=== PATIENT | male | born 1960 | race Caucasian/White ===

== ENCOUNTER 2016-10-09 23:44 | Emergency (ER) | payer MEDICAID ==
[~2016-10-09] VITALS: Ht 180.3 cm; Wt 108.9 kg
[~2016-10-09 23:44] MED LIST: AZIT500T2 PO; CHLORDIAZEPOXIDE PO; DIPH25TA23 PO; IBUP-1955 PO; MECL-102 PO; TRAZ-144 PO
--- NOTE | 2016-10-10 00:23 | NUR ---
IV PLOACED,LAB MARYCHUY BLOOD, EKG DONE, MONIOTOR SHOWS SINUS TACH, PO2=97% ON ROOM AIR
--- NOTE | 2016-10-10 00:35 | NUR ---
PT TO CT SCAN
[2016-10-10 00:37] LABS: HEMATOCRIT 39.7 % (40.0-50.0); HEMOGLOBIN 13.3 g/dL (14.0-18.0); MEAN CORPUSCULAR HEMOGLOBIN 30.1 uug (27.0-31.0); MEAN CORPUSCULAR HGB CONC 34 g/dL (32.0-37.0); MEAN CORPUSCULAR VOLUME 89.7 fL (82.0-92.0); PLATELET COUNT (AUTO) 236 K/uL (150-450); RED BLOOD CELL COUNT(AUTO) 4.43 MIL/uL (4.70-6.10); RED CELL DISTRIBUTION WIDTH 16.3 % (11.5-14.5); WHITE BLOOD COUNT (AUTO) 4.1 K/uL (4.0-11.2)
[2016-10-10 00:44] LABS: CALCIUM 8.6 mg/dL (8.5-10.1); CREATININE 1.1 mg/dL (0.6-1.3); POTASSIUM 4.2 mmol/L (3.5-5.1)
[2016-10-10 00:52] LABS: TROPONIN I < 0.017 ng/mL (0.00-0.056)
[2016-10-10 00:56] LABS: LYMPHOCYTES % (MANUAL) 40 % (20-40); MONOCYTES % (MANUAL) 10 % (2-10); NEUTROPHILS % (MANUAL) 50 % (42-75)
[2016-10-10 00:57] LABS: ANISOCYTOSIS 1+; PLATELET ESTIMATE ADEQUATE
[2016-10-10 00:59] LABS: ALBUMIN 3.2 g/dL (3.4-5.0); BILIRUBIN,DIRECT 0.1 mg/dL (0.0-0.2); BILIRUBIN,TOTAL 0.5 mg/dL (0.2-1.0); TOTAL PROTEIN, SERUM 6.7 g/dL (6.4-8.2)
[2016-10-10 01:01] LABS: LACTIC ACID 3.8 mmol/L (0.4-2.0)
[2016-10-10] MEDS ORDERED: PROCHLORPERAZINE EDISYLATE 10 MG/2 ML VIAL IV ONE (01:15)
[2016-10-10] MEDS ORDERED: KETOROLAC TROMETHAMINE 15 MG INJ IVP ONE (01:15)
[2016-10-10] MEDS ORDERED: KETOROLAC TROMETHAMINE 15 MG INJ ONE (01:25)
[2016-10-10] MEDS ORDERED: PROCHLORPERAZINE EDISYLATE 10 MG/2 ML VIAL ONE (01:25)
--- NOTE | 2016-10-10 01:43 | NUR ---
MSE COMPLETED, IV D/C'D INTACT, PT GIVEN ACI. PT AMBULATED W/O DIFF/TOOK ALL BELONGINGS. PT'S SON PRESENT AND TO SDRIVE.
[2016-10-10 02:08] VITALS: BP 129/78
== END 2016-10-10 01:45 | disposition home or self-care (01) ==
LOC: ER 23:57
DX: R07.89 Other chest pain (principal); F17.200 Nicotine dependence, unspecified, uncomplicated; F19.10 Other psychoactive substance abuse, uncomplicated
CPT/HCPCS: 36415; 70450; 71010; 80048; 80076; 83605; 83690; 84484; 85025; 85379; 85730; 87040 ×2; 93005; 96374; 96375; 99285; A4663 ×2; G0482; J0780; J1885; 70030-TC; G6040-TC

== ENCOUNTER 2017-05-20 16:42 | Emergency (ER) | payer MEDICAID ==
[~2017-05-20] VITALS: Ht 180.3 cm; Wt 95.3 kg
[2017-05-20] MEDS ORDERED: ACETAMINOPHEN ES 500 MG TABLET PO ONE (17:10)
[2017-05-20] MEDS ORDERED: ACETAMINOPHEN ES 500 MG TABLET ONE ×2 (17:24→17:26)
[2017-05-20] MEDS ORDERED: DEXAMETHASONE SOD PHOSPHATE 4 MG INJ IV ONE (18:06)
[2017-05-20] MEDS ORDERED: IV NS 1000 ML 1,000 ML IV ONE (18:15)
[2017-05-20] MEDS ORDERED: CEFTRIAXONE 1 G in IV DEXTROSE 5% 50 ML IV ONE (18:15)
[2017-05-20] MEDS ORDERED: DEXAMETHASONE SOD PHOSPHATE 10 MG INJ ONE (18:37)
[2017-05-20] MEDS ORDERED: CEFTRIAXONE 1 G VIAL ONE (18:37)
--- NOTE | 2017-05-20 18:40 | NUR ---
IV PLACED, 2L 0.9NS BOLUS INFUSING,ROCEFIN INFUSING . RAPID STREP SENT. PT POSITIONED FOR COMFORT, TYLENOL ADMIN EARLIER.
[2017-05-20] MEDS ORDERED: MISCELLANEOUS MED XX ONE (19:00)
--- NOTE | 2017-05-20 19:22 | NUR ---
Note fidel in EDM - 05/20/17 at 1926 by MATT Received report from VEDA Falk. Assumed care of pt at this time. First liter bolus completed, second liter bolus started and infusing freely to gravity. Pt c/o pain. Dr. Schrader notified, awaiting further orders.
--- NOTE | 2017-05-20 19:22 | NUR ---
BEDSIDE SBAR REPORT TO MILLY RN, IV FLUIDS ENDORSED TO TC RN TO COMPLETE.
--- NOTE | 2017-05-20 19:26 | NUR ---
Received report from VEDA Falk. Assumed care of pt at this time. First liter bolus completed. Pt c/o pain. Dr. Schrader notified, awaiting further orders.
[2017-05-20] MEDS ORDERED: MORPHINE SULFATE 4 MG/1 ML DISP.SYRIN IV ONE (19:30)
[2017-05-20] MEDS ORDERED: ONDANSETRON IV *ER 4 MG/2 ML VIAL IV ONE (19:30)
--- NOTE | 2017-05-20 19:39 | NUR ---
Pt medicated for pain, will monitor for effects of medication. Pt given ABT injection, will monitor for any adverse reactions. Pt resting in position of comfort for self.
[2017-05-20] MEDS ORDERED: PENICILLIN G BENZATHINE 2.4 MMU/4 ML DISP.SYRIN IM ONE (19:44)
[2017-05-20] MEDS ORDERED: MORPHINE SULFATE 4 MG/1 ML DISP.SYRIN ONE (19:44)
[2017-05-20] MEDS ORDERED: ONDANSETRON 4 MG/2 ML VIAL ONE (19:44)
--- NOTE | 2017-05-20 20:03 | NUR ---
No adverse reaction noted. Pt sts pain improved. Pt stable for discharge per MD. IV dc'd, catheter intact. Drsg applied. No problems noted to site. Pt given ACI. Pt verbalized understanding of dc instructions. Pt ambulated out of ER with steady gait and ride home.
[2017-05-20 20:05] VITALS: BP 119/89
== END 2017-05-20 20:06 | disposition home or self-care (01) ==
LOC: ER 16:43
DX: J02.9 Acute pharyngitis, unspecified (principal); F17.200 Nicotine dependence, unspecified, uncomplicated
CPT/HCPCS: 36415; 86403; 87070; 96365; 96375; 99284; A4663; J0696; J1100; J2270; J2405; J7030; J7060

== ENCOUNTER 2017-07-13 21:36 | Emergency (ER) | payer MEDICAID ==
[~2017-07-13] VITALS: Ht 177.8 cm; Wt 98.4 kg
[~2017-07-13 21:36] MED LIST changes: -AZIT500T2 PO; -CHLORDIAZEPOXIDE PO
[2017-07-13] MEDS ORDERED: HYDROCODONE-ACETAMIN 10-325 MG (22:08)
[2017-07-13] MEDS ORDERED: BAYER ASPIRIN 81 MG (22:08)
[2017-07-13] MEDS: HYDROCODONE/APAP 10-325 MG TABLET PO ONE (23:24)
--- NOTE | 2017-07-13 23:27 | NUR ---
Patient discharged to home in stable conditon. Written and verbal after care instructions given. Patient verbalizes understanding of instructions.
[2017-07-13] MEDS ORDERED: HYDROCODONE/APAP 10-325 MG TABLET ONE (23:41)
== END 2017-07-13 23:28 | disposition home or self-care (01) ==
LOC: ER 21:36
DX: M25.561 Pain in right knee (principal); Z96.651 Presence of right artificial knee joint; Z98.890 Other specified postprocedural states; F17.200 Nicotine dependence, unspecified, uncomplicated
CPT/HCPCS: 99283; A4663

== ENCOUNTER 2018-12-24 02:42 | Emergency (ER) | payer MEDICAID, OTHER ==
[~2018-12-24] VITALS: Ht 180.3 cm; Wt 102.1 kg
[~2018-12-24 02:42] MED LIST changes: +BAYER ASPIRIN 81 MG; -DIPH25TA23 PO; +HYDROCODONE-ACETAMIN 10-325 MG; -MECL-102 PO; -TRAZ-144 PO
--- NOTE | 2018-12-24 02:45 | NUR ---
PT IS ALERT AWAKE AND ORIENTED TIMES THREE OVERALL APPEARANCES FAIR PT STATED HE CAME IN BECAUSE HIS KIDNEY HURTS DENIES PMH OF KIDNEY PROBLEMS NO LOWER BACK PAIN DENIES S/S UTI PAIN LEVEL 10 MD AWARE
[2018-12-24 03:15] LABS: BASOPHILS % (AUTO) 0.6 % (0.0-2.0); EOSINOPHILS # (AUTO) 0.1 K/uL (0.0-0.7); EOSINOPHILS % (AUTO) 1.1 % (0.0-7.0); HEMATOCRIT 33.8 % (36.7-47.1); HEMOGLOBIN 11.1 g/dL (12.5-16.3); LYMPHOCYTES # (AUTO) 2.5 K/uL (20.0-40.0); LYMPHOCYTES % (AUTO) 37.9 % (20.5-51.5); MEAN CORPUSCULAR HEMOGLOBIN 26.9 uug (23.8-33.4); MEAN CORPUSCULAR HGB CONC 33 g/dL (32.5-36.3); MEAN CORPUSCULAR VOLUME 81.9 fL (73.0-96.2); MONOCYTES # (AUTO) 0.8 K/uL (2.0-10.0); MONOCYTES % (AUTO) 11.6 % (0.0-11.0); NEUTROPHILS # (AUTO) 3.2 K/uL (1.8-8.9); NEUTROPHILS % (AUTO) 48.8 % (38.5-71.5); PLATELET COUNT (AUTO) 259 K/uL (152-348); RED BLOOD CELL COUNT(AUTO) 4.13 MIL/uL (4.06-5.63); WHITE BLOOD COUNT (AUTO) 6.6 K/uL (3.6-10.2)
[2018-12-24 03:17] LABS: CREATININE 0.8 mg/dL (0.6-1.3)
[2018-12-24] MEDS ORDERED: LIDOCAINE VISCUS 2% 15 ML UDC MM ONE (03:30)
[2018-12-24] MEDS ORDERED: MAG HYDROX/AL HYDROX/SIMETH 30 ML LIQUID UDC PO ONE (03:30)
[2018-12-24] MEDS ORDERED: PANTOPRAZOLE SODIUM 40 MG TABLET.DR PO ONE ×2 (03:30→03:39)
[2018-12-24 03:32] LABS: BILIRUBIN,DIRECT 0.1 mg/dL (0.0-0.2); BILIRUBIN,TOTAL 0.3 mg/dL (0.2-1.0); TOTAL PROTEIN, SERUM 6.3 g/dL (6.4-8.2)
[2018-12-24] MEDS ORDERED: MAG HYDROX/AL HYDROX/SIMETH 30 ML LIQUID UDC ONE (03:39)
[2018-12-24] MEDS ORDERED: LIDOCAINE VISCUS 2% 15 ML UDC ONE (03:40)
--- NOTE | 2018-12-24 04:00 | NUR ---
WAS MED TIME ONE WITH PROTONIX, MAALOX AND LIDO VISCUS DENIES ALLERGIES MEDICATIONS TEACHING GIVEN WITH SOME EFFECT
--- NOTE | 2018-12-24 05:00 | NUR ---
PT WAS A SLEEP COMFORT AND SAFETY MAINTAINED
[2018-12-24] MEDS ORDERED: MORPHINE SULFATE 4 MG/1 ML DISP.SYRIN ONE (05:29)
[2018-12-24] MEDS ORDERED: MORPHINE SULFATE 4 MG/1 ML DISP.SYRIN IM ONE (05:30)
--- NOTE | 2018-12-24 05:45 | NUR ---
WAS GIVEN MORPHINE 4MG FOR KIDNEY PAIN DENIES ALLERGY MED TEACHING GIVEN WITH EFFECT
[2018-12-24 06:06] LABS: *BILIRUBIN,URIN NEGATIVE (NEGATIVE); *BLOOD, URINE NEGATIVE (NEGATIVE); *CLARITY,URINE CLEAR (CLEAR); *COLOR,URINE YELLOW (YELLOW); *KETONES,URINE NEGATIVE (NEGATIVE); *UROBILINOGEN,URINE 0.2 E.U./dl (NORMAL); LEUKOCYTE ESTERASE ,URINE NEGATIVE (NEGATIVE); NITRITE, URINE NEGATIVE (NEGATIVE); PH,URINE 5.5 (5.0-8.0); UGLUCOSE NEGATIVE (NEGATIVE)
--- NOTE | 2018-12-24 06:41 | NUR ---
PT REST QUIETLY AWAITING FOR RE EVAL COMFORT AND SAFETY MAINTAINED
--- NOTE | 2018-12-24 07:01 | NUR ---
Patient discharged to home in stable conditon. Written and verbal after care instructions given. Patient verbalizes understanding of instructions. Patient ambulated with stable gait.
[2018-12-24 07:02] VITALS: BP 120/61
== END 2018-12-24 07:03 | disposition home or self-care (01) ==
LOC: ER 02:44
DX: R07.9 Chest pain, unspecified (principal); R10.84 Generalized abdominal pain; R11.0 Nausea; F17.210 Nicotine dependence, cigarettes, uncomplicated; Z79.899 Other long term (current) drug therapy; Z79.1 Long term (current) use of non-steroidal anti-inflammatories (NSAID)
CPT/HCPCS: 36415; 71045; 74176; 80048; 80076; 81001; 83690; 84484 ×2; 85025; 93005; 96372; 99284; 99406; J2270; 70030-TC; A4663

== ENCOUNTER 2019-01-23 15:03 | Emergency (ER) | payer OTHER ==
[~2019-01-23] VITALS: Ht 180.3 cm; Wt 102.1 kg
[2019-01-23] MEDS ORDERED: LIDOCAINE VISCUS 2% 15 ML UDC MM ONE (15:45)
[2019-01-23] MEDS ORDERED: MAG HYDROX/AL HYDROX/SIMETH 30 ML LIQUID UDC PO ONE (15:45)
[2019-01-23] MEDS ORDERED: HYDROCODONE/APAP 5-325MG TABLET PO ONE (15:45)
[2019-01-23] MEDS ORDERED: IV NORMAL SALINE 1000 ML BAG IV ONE (15:45)
[2019-01-23 15:48] LABS: BASOPHILS % (AUTO) 0.5 % (0.0-2.0); EOSINOPHILS % (AUTO) 0.2 % (0.0-7.0); HEMATOCRIT 37.3 % (36.7-47.1); LYMPHOCYTES # (AUTO) 1.3 K/uL (20.0-40.0); MEAN CORPUSCULAR HEMOGLOBIN 26.8 uug (23.8-33.4); MEAN CORPUSCULAR HGB CONC 32 g/dL (32.5-36.3); MEAN CORPUSCULAR VOLUME 83.3 fL (73.0-96.2); MONOCYTES # (AUTO) 0.9 K/uL (2.0-10.0); MONOCYTES % (AUTO) 12.4 % (0.0-11.0); NEUTROPHILS # (AUTO) 4.7 K/uL (1.8-8.9); NEUTROPHILS % (AUTO) 67.9 % (38.5-71.5); PLATELET COUNT (AUTO) 340 K/uL (152-348); RED BLOOD CELL COUNT(AUTO) 4.48 MIL/uL (4.06-5.63); WHITE BLOOD COUNT (AUTO) 6.9 K/uL (3.6-10.2)
[2019-01-23] MEDS ORDERED: HYDROCODONE/APAP 5-325MG TABLET ONE (15:50)
[2019-01-23] MEDS ORDERED: MAG HYDROX/AL HYDROX/SIMETH 30 ML LIQUID UDC ONE (15:50)
[2019-01-23] MEDS ORDERED: LIDOCAINE VISCUS 2% 15 ML UDC ONE (15:50)
[2019-01-23 16:07] LABS: BILIRUBIN,DIRECT 0.1 mg/dL (0.0-0.2); BILIRUBIN,TOTAL 0.4 mg/dL (0.2-1.0); TOTAL PROTEIN, SERUM 6.9 g/dL (6.4-8.2)
--- NOTE | 2019-01-23 17:00 | NUR ---
Patient discharged to home in stable conditon. Written and verbal after care instructions given. Patient verbalizes understanding of instructions.PT WALKS IN STEADY GAIT. PT SAYS FEELS BETTER, PT NOT DRIVING.
[2019-01-23 17:13] VITALS: BP 101/69
== END 2019-01-23 17:00 | disposition home or self-care (01) ==
LOC: ER 15:03
DX: K29.20 Alcoholic gastritis without bleeding (principal); F10.10 Alcohol abuse, uncomplicated; L03.012 Cellulitis of left finger; F17.210 Nicotine dependence, cigarettes, uncomplicated; Z79.1 Long term (current) use of non-steroidal anti-inflammatories (NSAID); Z79.899 Other long term (current) drug therapy; Y90.9 Presence of alcohol in blood, level not specified
CPT/HCPCS: 36415; 70030-TC; 71045; 83690; 85025; 85730; 93005; A4663; J7030

== ENCOUNTER 2019-02-05 15:40 | Emergency (ER) | payer OTHER ==
[~2019-02-05] VITALS: Ht 175.3 cm; Wt 99.8 kg
[2019-02-05 15:59] LABS: BASOPHILS % (AUTO) 0.4 % (0.0-2.0); EOSINOPHILS % (AUTO) 0.2 % (0.0-7.0); HEMATOCRIT 39.4 % (36.7-47.1); HEMOGLOBIN 12.6 g/dL (12.5-16.3); LYMPHOCYTES # (AUTO) 0.6 K/uL (20.0-40.0); LYMPHOCYTES % (AUTO) 13.2 % (20.5-51.5); MEAN CORPUSCULAR HEMOGLOBIN 26.9 uug (23.8-33.4); MEAN CORPUSCULAR HGB CONC 32 g/dL (32.5-36.3); MEAN CORPUSCULAR VOLUME 84.4 fL (73.0-96.2); MONOCYTES # (AUTO) 0.4 K/uL (2.0-10.0); MONOCYTES % (AUTO) 9.5 % (0.0-11.0); NEUTROPHILS # (AUTO) 3.6 K/uL (1.8-8.9); NEUTROPHILS % (AUTO) 76.7 % (38.5-71.5); PLATELET COUNT (AUTO) 296 K/uL (152-348); RED BLOOD CELL COUNT(AUTO) 4.66 MIL/uL (4.06-5.63); WHITE BLOOD COUNT (AUTO) 4.7 K/uL (3.6-10.2)
[2019-02-05 16:07] LABS: CREATININE 1.4 mg/dL (0.6-1.3); POTASSIUM 3.9 mmol/L (3.5-5.1)
[2019-02-05 16:13] LABS: BILIRUBIN,DIRECT 0.1 mg/dL (0.0-0.2); BILIRUBIN,TOTAL 0.3 mg/dL (0.2-1.0); TOTAL PROTEIN, SERUM 7.3 g/dL (6.4-8.2)
--- NOTE | 2019-02-05 16:17 | NUR ---
PT IS IN ROOM #1B. DR RICHARDS EVALUATED THE PT.
[2019-02-05] MEDS ORDERED: IBUPROFEN 600 MG TABLET PO ONE (16:45)
[2019-02-05] MEDS ORDERED: IBUPROFEN 600 MG TABLET ONE (16:47)
--- NOTE | 2019-02-05 16:55 | NUR ---
PT WAS D/C'd TO HOME AFTER DR RICHARDS RE-EVALUATION. D/C INSTRUCTIONS GIVEN TO THE PT.
[2019-02-05 16:57] VITALS: BP 121/79
== END 2019-02-05 16:58 | disposition home or self-care (01) ==
LOC: ER 15:41
DX: R07.2 Precordial pain (principal); F17.210 Nicotine dependence, cigarettes, uncomplicated; Z79.1 Long term (current) use of non-steroidal anti-inflammatories (NSAID); Z79.899 Other long term (current) drug therapy; Z79.82 Long term (current) use of aspirin
CPT/HCPCS: 36415; 70030-TC; 71045; 85025; 93005; A4663

== ENCOUNTER 2019-02-07 17:46 | Emergency (ER) | payer OTHER ==
[~2019-02-07] VITALS: Ht 180.3 cm; Wt 99.8 kg
[2019-02-07] MEDS ORDERED: IV NORMAL SALINE 1000 ML BAG IV ONE ×2 (18:30→19:15)
[2019-02-07 18:46] LABS: BASOPHILS % (AUTO) 0.3 % (0.0-2.0); EOSINOPHILS % (AUTO) 0.1 % (0.0-7.0); HEMATOCRIT 39.3 % (36.7-47.1); HEMOGLOBIN 12.8 g/dL (12.5-16.3); LYMPHOCYTES # (AUTO) 1.3 K/uL (20.0-40.0); LYMPHOCYTES % (AUTO) 18.2 % (20.5-51.5); MEAN CORPUSCULAR HEMOGLOBIN 26.9 uug (23.8-33.4); MEAN CORPUSCULAR HGB CONC 33 g/dL (32.5-36.3); MEAN CORPUSCULAR VOLUME 82.8 fL (73.0-96.2); MONOCYTES % (AUTO) 13.7 % (0.0-11.0); NEUTROPHILS # (AUTO) 4.8 K/uL (1.8-8.9); NEUTROPHILS % (AUTO) 67.7 % (38.5-71.5); PLATELET COUNT (AUTO) 312 K/uL (152-348); RED BLOOD CELL COUNT(AUTO) 4.75 MIL/uL (4.06-5.63); WHITE BLOOD COUNT (AUTO) 7.2 K/uL (3.6-10.2)
[2019-02-07 18:46] LABS: *BILIRUBIN,URIN 1+ (NEGATIVE); *BLOOD, URINE NEGATIVE (NEGATIVE); *COLOR,URINE DARK YELLOW (YELLOW); *KETONES,URINE TRACE (NEGATIVE); *UROBILINOGEN,URINE 0.2 E.U./dl (NORMAL); LEUKOCYTE ESTERASE ,URINE NEGATIVE (NEGATIVE); NITRITE, URINE NEGATIVE (NEGATIVE); UGLUCOSE NEGATIVE (NEGATIVE)
[2019-02-07 18:52] LABS: CREATININE 1.5 mg/dL (0.6-1.3); POTASSIUM 3.5 mmol/L (3.5-5.1)
[2019-02-07 18:52] LABS: *CLARITY,URINE SLIGHTLY HAZY (CLEAR)
[2019-02-07 18:57] LABS: MUCUS,URINE MANY /LPF (0-FEW); RBC,URINE 0-3 /HPF (0-3); WBC,URINE 0-3 /HPF (0-3)
[2019-02-07 18:58] LABS: BILIRUBIN,DIRECT 0.1 mg/dL (0.0-0.2); BILIRUBIN,TOTAL 0.4 mg/dL (0.2-1.0); TOTAL PROTEIN, SERUM 7.5 g/dL (6.4-8.2)
--- NOTE | 2019-02-07 19:02 | NUR ---
SHIFT REPORT GIVEN TO DAHIANA MCCOLLUM.
[2019-02-07] MEDS ORDERED: PANTOPRAZOLE SODIUM 40 MG VIAL ONE (19:13)
[2019-02-07] MEDS ORDERED: LOPERAMIDE HCL 2 MG CAPSULE ONE (19:13)
[2019-02-07] MEDS ORDERED: ONDANSETRON 4 MG/2 ML VIAL ONE (19:13)
[2019-02-07] MEDS ORDERED: PANTOPRAZOLE SODIUM 40 MG VIAL IV ONE (19:15)
[2019-02-07] MEDS ORDERED: LOPERAMIDE HCL 2 MG CAPSULE PO ONE (19:15)
[2019-02-07] MEDS ORDERED: ONDANSETRON 4 MG/2 ML VIAL IV ONE (19:15)
--- NOTE | 2019-02-07 21:05 | NUR ---
Patient discharged to home in stable conditon. Written and verbal after care instructions given. Patient verbalizes understanding of instructions. PATIENT LEFT WITH STABLE GAIT.
[2019-02-07 21:06] VITALS: BP 128/90
[2019-02-10] MEDS ORDERED: NITROGLYCERIN 0.4 MG/TAB BOTTLE SL ONE (01:16)
== END 2019-02-07 21:05 | disposition home or self-care (01) ==
LOC: ER 17:46
DX: K52.9 Noninfective gastroenteritis and colitis, unspecified (principal); F17.210 Nicotine dependence, cigarettes, uncomplicated; Z79.899 Other long term (current) drug therapy
CPT/HCPCS: 36415; 80048; 80076; 81000; 81001; 83690; 84484; 85025; 85730; 87086; 93005; 96361; 96374; 96375; 99284; C9113; J2405; 70030-TC; A4663; J7030

== ENCOUNTER 2019-03-10 20:26 | Emergency (ER) | payer OTHER ==
[~2019-03-10] VITALS: Ht 180.3 cm; Wt 102.1 kg
[2019-03-10 20:45] LABS: BASOPHILS # (AUTO) 0.1 K/uL (0.0-8.0); BASOPHILS % (AUTO) 0.7 % (0.0-2.0); EOSINOPHILS % (AUTO) 0.5 % (0.0-7.0); HEMATOCRIT 38.9 % (36.7-47.1); HEMOGLOBIN 12.7 g/dL (12.5-16.3); LYMPHOCYTES # (AUTO) 3.1 K/uL (20.0-40.0); LYMPHOCYTES % (AUTO) 41.5 % (20.5-51.5); MEAN CORPUSCULAR HEMOGLOBIN 26.3 uug (23.8-33.4); MEAN CORPUSCULAR HGB CONC 33 g/dL (32.5-36.3); MEAN CORPUSCULAR VOLUME 80.7 fL (73.0-96.2); MONOCYTES # (AUTO) 0.5 K/uL (2.0-10.0); MONOCYTES % (AUTO) 7.1 % (0.0-11.0); NEUTROPHILS # (AUTO) 3.7 K/uL (1.8-8.9); NEUTROPHILS % (AUTO) 50.2 % (38.5-71.5); PLATELET COUNT (AUTO) 374 K/uL (152-348); RED BLOOD CELL COUNT(AUTO) 4.82 MIL/uL (4.06-5.63); WHITE BLOOD COUNT (AUTO) 7.4 K/uL (3.6-10.2)
--- NOTE | 2019-03-10 20:46 | NUR ---
Patient stated that he was having chest pain, and had suicidal ideations of running out onto the street and getting hit by a car. Patient heavily intoxicated with alcohol, stated, "i drank a few alessandra". Patient does not appear to be in any immediate danger to himself or others at this point in time. ERMD aware and wants to wait until patients blood alcohol level decreases and re-evaluate patient status then. Patient placed in bed nearest to nurses station and will keep continuing to monitor patient throughout observation.
--- NOTE | 2019-03-10 20:46 | NUR ---
Patient ambulated with stable gait. Speech clear, speaks complete sentences. A/Ox4. 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 Respiratory even and unlabored, no cough no sob. CP radiating to the neck, PS8/10. Denies any n/v/d. Patient in bed at lowest position, sr upx2, call light within reach. Fall and safety precautions implemented per protocol.
[2019-03-10 20:50] LABS: CREATININE 0.8 mg/dL (0.6-1.3); POTASSIUM 4.5 mmol/L (3.5-5.1)
[2019-03-10 20:55] LABS: BILIRUBIN,DIRECT 0.1 mg/dL (0.0-0.2); BILIRUBIN,TOTAL 0.3 mg/dL (0.2-1.0); TOTAL PROTEIN, SERUM 7.7 g/dL (6.4-8.2)
[2019-03-10] MEDS ORDERED: IV D5 1/2 NS 1000 ML 1,000 ML IV ONE (21:13)
[2019-03-10] MEDS ORDERED: IV NORMAL SALINE 1000 ML BAG IV ONE (21:15)
--- NOTE | 2019-03-10 21:25 | NUR ---
Patient in bed resting, provided pt with blanket. VSS
[2019-03-10 21:31] LABS: *AMPHETAMINE, URINE NEGATIVE (NEGATIVE); *BARBITURATE, URINE NEGATIVE (NEGATIVE); *CANNABINOID, URINE NEGATIVE (NEGATIVE); *COCCAINE, URINE NEGATIVE (NEGATIVE); *OPIATE, URINE NEGATIVE (NEGATIVE); *PHENCYCLIDINE SCREEN,URINE NEGATIVE (NEGATIVE)
[2019-03-10] MEDS ORDERED: MORPHINE SULFATE 4 MG/1 ML DISP.SYRIN IV ONE (21:45)
[2019-03-10] MEDS ORDERED: MORPHINE SULFATE 4 MG/1 ML DISP.SYRIN ONE (21:46)
--- NOTE | 2019-03-10 21:55 | NUR ---
Patient transported to CT in stable condition.
--- NOTE | 2019-03-10 22:10 | NUR ---
Patient back in room from CT in stable condition. VSS NAD
--- NOTE | 2019-03-10 23:27 | NUR ---
Patient in bed asleep, no s/sx of acute distress VSS
--- NOTE | 2019-03-11 01:18 | NUR ---
Patient in bed asleep, VSS NAD
[2019-03-11] MEDS ORDERED: HYDROCODONE/APAP 5-325MG TABLET ONE (01:56)
[2019-03-11] MEDS ORDERED: HYDROCODONE/APAP 5-325MG TABLET PO ONE (02:00)
--- NOTE | 2019-03-11 02:48 | NUR ---
IV D5%-1/2 N/S 1000ml infusion completed at 0248. 100% infused over 5 hours.
--- NOTE | 2019-03-11 03:00 | NUR ---
Patient sound asleep VSS, NAD
--- NOTE | 2019-03-11 04:20 | NUR ---
KIMBERLEY re-evaluated patient at this time, and patient stated, "No, i do not want to kill/harm myself anymore". Got patient up from bed to ambulate, and ambulated with steady gait. Informed patient that if he is going to be discharged he will need a family member to come pick him up. Patient stated that his daugther Marina will be available to pick him up at around 0600.
[2019-03-11] MEDS ORDERED: MORPHINE SULFATE 4 MG/1 ML DISP.SYRIN ONE (04:41)
[2019-03-11] MEDS ORDERED: MORPHINE SULFATE 4 MG/1 ML DISP.SYRIN IV ONE (04:45)
--- NOTE | 2019-03-11 06:00 | NUR ---
Patient discharged to home in stable conditon. Written and verbal after care instructions given. Patient verbalizes understanding of instructions. Patient ambulated with stable gait. Instructed patient that he may not drive, understands advisement.
[2019-03-11 06:14] VITALS: BP 125/85
== END 2019-03-11 06:15 | disposition home or self-care (01) ==
LOC: ER 20:28
DX: S30.0XXA Contusion of lower back and pelvis, initial encounter (principal); S09.90XA Unspecified injury of head, initial encounter; R07.89 Other chest pain; F10.129 Alcohol abuse with intoxication, unspecified; R42 Dizziness and giddiness; Z79.1 Long term (current) use of non-steroidal anti-inflammatories (NSAID); Z79.899 Other long term (current) drug therapy; W19.XXXA Unspecified fall, initial encounter; Y93.89 Activity, other specified; Y92.89 Other specified places as the place of occurrence of the external cause; Y99.8 Other external cause status; Y90.8 Blood alcohol level of 240 mg/100 ml or more
CPT/HCPCS: 36415; 70450; 71045; 72125; 80048; 80076; 80307; 84484 ×2; 85025; 85379; 93005 ×2; 96361 ×3; 96374; 96376; 99284; G0480; J2270 ×2; J3490; 70030-TC; A4663; J7040; J7060

== ENCOUNTER 2019-03-20 19:59 | Emergency (ER) | payer OTHER ==
[~2019-03-20] VITALS: Ht 180.3 cm; Wt 102.1 kg
--- NOTE | 2019-03-20 20:20 | NUR ---
Patient ambulated with stable gait. A/Ox4. Patient came for c/o chest pain/epigastric pain that happened earlier this morning. Patient denies any alcohol consumption, respiratory even and unlabored. Patient in bed at lowest position, sr upx2, call light within reach. Fall precautions implemented per protocol.
[2019-03-20] MEDS ORDERED: MORPHINE SULFATE 2 MG/1 ML DISP.SYRIN IV ONE (21:00)
[2019-03-20] MEDS ORDERED: ONDANSETRON 4 MG/2 ML VIAL IV ONE (21:00)
[2019-03-20 21:13] LABS: BASOPHILS % (AUTO) 0.6 % (0.0-2.0); EOSINOPHILS % (AUTO) 0.6 % (0.0-7.0); HEMATOCRIT 32.4 % (36.7-47.1); HEMOGLOBIN 10.8 g/dL (12.5-16.3); LYMPHOCYTES # (AUTO) 1.8 K/uL (20.0-40.0); LYMPHOCYTES % (AUTO) 31.1 % (20.5-51.5); MEAN CORPUSCULAR HEMOGLOBIN 27.4 uug (23.8-33.4); MEAN CORPUSCULAR HGB CONC 33 g/dL (32.5-36.3); MEAN CORPUSCULAR VOLUME 82.5 fL (73.0-96.2); MONOCYTES # (AUTO) 0.8 K/uL (2.0-10.0); MONOCYTES % (AUTO) 13.8 % (0.0-11.0); NEUTROPHILS # (AUTO) 3.2 K/uL (1.8-8.9); NEUTROPHILS % (AUTO) 53.9 % (38.5-71.5); PLATELET COUNT (AUTO) 281 K/uL (152-348); RED BLOOD CELL COUNT(AUTO) 3.93 MIL/uL (4.06-5.63); WHITE BLOOD COUNT (AUTO) 5.9 K/uL (3.6-10.2)
[2019-03-20] MEDS ORDERED: ONDANSETRON 4 MG/2 ML VIAL ONE (21:17)
[2019-03-20] MEDS ORDERED: MORPHINE SULFATE 4 MG/1 ML DISP.SYRIN ONE (21:17)
[2019-03-20 21:22] LABS: CREATININE 0.8 mg/dL (0.6-1.3); POTASSIUM 3.6 mmol/L (3.5-5.1)
[2019-03-20 21:27] LABS: BILIRUBIN,DIRECT 0.2 mg/dL (0.0-0.2); BILIRUBIN,TOTAL 0.6 mg/dL (0.2-1.0); TOTAL PROTEIN, SERUM 6.7 g/dL (6.4-8.2)
[2019-03-20 21:29] LABS: *BILIRUBIN,URIN NEGATIVE (NEGATIVE); *BLOOD, URINE NEGATIVE (NEGATIVE); *CLARITY,URINE CLEAR (CLEAR); *COLOR,URINE YELLOW (YELLOW); *KETONES,URINE NEGATIVE (NEGATIVE); LEUKOCYTE ESTERASE ,URINE NEGATIVE (NEGATIVE); NITRITE, URINE NEGATIVE (NEGATIVE); UGLUCOSE NEGATIVE (NEGATIVE)
[2019-03-20 21:30] LABS: ETHANOL < 3 MG/DL (0-0)
[2019-03-20 21:36] LABS: WBC,URINE 0-3 /HPF (0-3)
[2019-03-20] MEDS ORDERED: IV NORMAL SALINE 1000 ML BAG IV ONE (21:45)
[2019-03-20] MEDS ORDERED: IV NORMAL SALINE 250 ML IV ONE (21:50)
[2019-03-20] MEDS ORDERED: SWABABLE VALVE TRANSFER SET EA MC ONE (21:50)
[2019-03-20] MEDS ORDERED: IOHEXOL 350 100 ML INFUS..BTL ONE (21:50)
--- NOTE | 2019-03-20 22:03 | NUR ---
Patient transferred to CT in stable condition.
--- NOTE | 2019-03-20 22:16 | NUR ---
Patient back in room from CT.
--- NOTE | 2019-03-20 23:29 | NUR ---
EDIT: 1L NaCL completely infused and stopped @ 6116
--- NOTE | 2019-03-21 00:13 | NUR ---
Patient asleep, NAD VSS
--- NOTE | 2019-03-21 01:13 | NUR ---
Patient discharged to home in stable conditon. Written and verbal after care instructions given. Patient verbalizes understanding of instructions. Instructed patient that he needs to be picked up and may not drive. Patient stated that his daughter will be picking him up and taking him home.
[2019-03-21 01:14] VITALS: BP 136/85
== END 2019-03-21 01:15 | disposition home or self-care (01) ==
LOC: ER 20:04
DX: K29.20 Alcoholic gastritis without bleeding (principal); R07.89 Other chest pain; Z79.899 Other long term (current) drug therapy
CPT/HCPCS: 36415; 71045; 71275; 74174; 80048; 80076; 81000; 81001; 83690; 84484; 85025; 85730; 93005; 96361; 96374; 96375; 99284; G0480; J2270; J2405; Q9967; 70030-TC; A4663; J7030; J7050

== ENCOUNTER 2019-05-14 21:36 | Inpatient (IN) | payer OTHER ==
[~2019-05-14] VITALS: Ht 180.3 cm; Wt 103.9 kg
--- NOTE | 2019-05-14 22:00 | NUR ---
Patient came into the ER with chief complaint of CP 30 mins prior to arrival and back pain from a fall.
[2019-05-14 22:07] LABS: BASOPHILS % (AUTO) 0.6 % (0.0-2.0); EOSINOPHILS % (AUTO) 0.8 % (0.0-7.0); HEMATOCRIT 25.8 % (36.7-47.1); HEMOGLOBIN 8.2 g/dL (12.5-16.3); LYMPHOCYTES # (AUTO) 1.9 K/uL (20.0-40.0); MEAN CORPUSCULAR HGB CONC 32 g/dL (32.5-36.3); MEAN CORPUSCULAR VOLUME 78.5 fL (73.0-96.2); MONOCYTES # (AUTO) 0.6 K/uL (2.0-10.0); MONOCYTES % (AUTO) 9.9 % (0.0-11.0); NEUTROPHILS # (AUTO) 3.5 K/uL (1.8-8.9); NEUTROPHILS % (AUTO) 57.7 % (38.5-71.5); PLATELET COUNT (AUTO) 374 K/uL (152-348); RED BLOOD CELL COUNT(AUTO) 3.29 MIL/uL (4.06-5.63)
--- NOTE | 2019-05-14 22:11 | NUR ---
Dr. Younger at bedside for MSE.
[2019-05-14 22:15] LABS: CREATININE 1.1 mg/dL (0.6-1.3); POTASSIUM 4.1 mmol/L (3.5-5.1)
[2019-05-14] MEDS ORDERED: HYDROCODONE/APAP 10-325 MG TABLET PO ONE (22:15)
[2019-05-14 22:27] LABS: BILIRUBIN,DIRECT 0.1 mg/dL (0.0-0.2); BILIRUBIN,TOTAL 0.2 mg/dL (0.2-1.0); TOTAL PROTEIN, SERUM 6.9 g/dL (6.4-8.2)
[2019-05-14] MEDS ORDERED: HYDROCODONE/APAP 10-325 MG TABLET ONE (22:28)
--- NOTE | 2019-05-15 00:20 | NUR ---
Called Radiology for CT chest with contrast. IC obtained. Patient AAOX4. In no acute distress. Denies any SOB at this time.
[2019-05-15] MEDS ORDERED: SWABABLE VALVE TRANSFER SET EA MC ONE (00:21)
[2019-05-15] MEDS ORDERED: IV NORMAL SALINE 250 ML IV ONE (00:22)
[2019-05-15] MEDS ORDERED: IOHEXOL 350 100 ML INFUS..BTL ONE (00:22)
[2019-05-15] MEDS ORDERED: ASPIRIN 325 MG TABLET PO ONE (00:30)
[2019-05-15] MEDS ORDERED: NITROGLYCERIN 0.4 MG/TAB BOTTLE SL ONE ×2 (00:30→02:15)
[2019-05-15] MEDS ORDERED: MORPHINE SULFATE 2 MG/1 ML DISP.SYRIN IV ONE ×2 (00:30→02:15)
[2019-05-15] MEDS ORDERED: MORPHINE SULFATE 2 MG/1 ML DISP.SYRIN ONE ×2 (00:43→02:13)
--- NOTE | 2019-05-15 01:05 | NUR ---
Back to ER from CT
--- NOTE | 2019-05-15 01:40 | NUR ---
Patient still complaining of mild chest pain. @nd dose of Nitroglycerin SL given.
--- NOTE | 2019-05-15 02:10 | NUR ---
[facility]. Waiting for Dr Delgado to call back.
--- NOTE | 2019-05-15 02:12 | NUR ---
Patient still complaining of chest pain 10/25. 3rd dose of Nitroglycerin SL given.
--- NOTE | 2019-05-15 02:16 | NUR ---
Dr. Younger on panel call with Dr. Delgado.
[2019-05-15] MEDS ORDERED: ACETAMINOPHEN 325 MG TABLET PO PRN (02:30)
[2019-05-15] MEDS ORDERED: ONDANSETRON 4 MG/2 ML VIAL IV PRN (02:30)
[2019-05-15] MEDS ORDERED: MAGNESIUM HYDROXIDE 30 ML LIQUID UDC PO PRN (02:30)
[2019-05-15 02:37] LABS: IRON, SERUM 11 ug/dL (50-175)
[2019-05-15] MEDS ORDERED: ASPIRIN 81 MG TAB.CHEW PO ONE (03:00)
--- NOTE | 2019-05-15 03:13 | NUR ---
Patient brought to Telemetry unit Room 307.
[2019-05-15 03:45] VITALS: BP 128/83
[2019-05-15] MEDS: HYDROCODONE/APAP 5-325MG TABLET PO PRN ×2 (03:57→08:41)
--- NOTE | 2019-05-15 04:00 | NUR ---
Received patient from ER. Dx: Chest pain. A/Ox4. No complaints of chest pain at this time. Belongings and belonging list with patient. Complains of back pain, will administer PRN pain medication. No complaints of SOB. Heplock on the right AC is intact and patent. Safety measures initiated. Bed is low and locked, call light within reach. Will continue to monitor. Will continue with admission process.
[2019-05-15 06:10] LABS: BASOPHILS % (AUTO) 0.7 % (0.0-2.0); EOSINOPHILS # (AUTO) 0.1 K/uL (0.0-0.7); EOSINOPHILS % (AUTO) 1.7 % (0.0-7.0); HEMATOCRIT 25.1 % (36.7-47.1); LYMPHOCYTES # (AUTO) 1.9 K/uL (20.0-40.0); LYMPHOCYTES % (AUTO) 45.3 % (20.5-51.5); MEAN CORPUSCULAR HEMOGLOBIN 25.1 uug (23.8-33.4); MEAN CORPUSCULAR HGB CONC 32 g/dL (32.5-36.3); MEAN CORPUSCULAR VOLUME 78.9 fL (73.0-96.2); MONOCYTES # (AUTO) 0.5 K/uL (2.0-10.0); MONOCYTES % (AUTO) 11.1 % (0.0-11.0); NEUTROPHILS # (AUTO) 1.7 K/uL (1.8-8.9); NEUTROPHILS % (AUTO) 41.2 % (38.5-71.5); PLATELET COUNT (AUTO) 347 K/uL (152-348); RED BLOOD CELL COUNT(AUTO) 3.17 MIL/uL (4.06-5.63); WHITE BLOOD COUNT (AUTO) 4.2 K/uL (3.6-10.2)
[2019-05-15 06:40] LABS: BILIRUBIN,TOTAL 0.3 mg/dL (0.2-1.0); CREATININE 1.1 mg/dL (0.6-1.3); MAGNESIUM 2.2 mg/dL (1.8-2.4); PHOSPHOROUS 3.3 mg/dL (2.5-4.9); POTASSIUM 3.8 mmol/L (3.5-5.1); TOTAL PROTEIN, SERUM 6.4 g/dL (6.4-8.2)
--- NOTE | 2019-05-15 06:56 | NUR ---
All needs met and anticipated. No distress or SOB noted. Pain assessment done, patient complains of back pain; medication given accordingly and effective. Pt. is on room air, tolerating well. IV Right AC patent and intact; saline flush. Vital signs are stable. Physical assessment done. Kept pt.clean, dry, and comfortable. Education provided. Call light and frequently used items within reach. Bed is in low position, bed alarm is on, locked, and side rails up x2 for safety.
[2019-05-15] MEDS ORDERED: PANTOPRAZOLE SODIUM 40 MG TABLET.DR PO SCH (07:00)
[2019-05-15 07:24] LABS: THYROID STIMULATING HORMONE 2.1 mIU/mL (0.358-3.740)
--- NOTE | 2019-05-15 08:00 | NUR ---
awake alert and oriented x4 no ss pf acute chest pain or SOB. SR ON MONITOR
[2019-05-15] MEDS ORDERED: ENOXAPARIN SODIUM 40 MG/0.4 ML DISP.SYRIN SQ SCH (09:00)
[2019-05-15] MEDS ORDERED: INFLUENZA VACCINE 2019-2020 0.5 ML DISP.SYRIN IM ONE (10:00)
[2019-05-15] MEDS: GABAPENTIN 100 MG CAPSULE PO SCH ×3 (10:27→16:58)
[2019-05-15 11:45] VITALS: BP 111/74
--- NOTE | 2019-05-15 12:00 | NUR ---
resting comfortably and sleeping most of the time. denies dizziness. sr on monitor
[2019-05-15] MEDS ORDERED: SOD FERRIC GLUC COMPLX/SUCROSE 125 MG in IV NORMAL SALINE 100 ML IV SCH (14:00)
--- NOTE | 2019-05-15 15:29 | NUR ---
seen by dr manning for cardio consult see notes
[2019-05-15 15:56] VITALS: BP 120/83
[2019-05-15] MEDS ORDERED: FERR325T28 PO (18:02)
--- NOTE | 2019-05-15 18:04 | NUR ---
SEEN BY DR HALE WITH DC ORDER
--- NOTE | 2019-05-15 18:44 | NUR ---
discharged home stable with rx and follow-up instruction with pcp and web mobile designer
[2019-05-15] MEDS ORDERED: METOPROLOL TARTRATE 25 MG TABLET PO SCH (21:00)
== END 2019-05-15 18:43 | disposition home or self-care (01) | DRG 241 ==
LOC: ER 21:41 → TELE3 05-15 02:57
PROVIDERS: ADMIT Internal Medicine; ATTEND Internal Medicine
DX: K29.70 Gastritis, unspecified, without bleeding (principal); D50.9 Iron deficiency anemia, unspecified; E86.0 Dehydration; F10.21 Alcohol dependence, in remission; K44.9 Diaphragmatic hernia without obstruction or gangrene; Z98.84 Bariatric surgery status; Z87.11 Personal history of peptic ulcer disease; Z96.659 Presence of unspecified artificial knee joint; Z91.81 History of falling
CPT/HCPCS: 36415; 70030-TC; 71045; 71275; 83550; 83735; 84100; 84443; 85025; 90686; 93005; 93307; A4663; G0378; J1650; J2270; J2916; J3490; J7050; Q9967

== ENCOUNTER 2019-09-26 02:04 | Emergency (ER) | payer OTHER ==
[~2019-09-26] VITALS: Ht 180.3 cm; Wt 104.3 kg
--- NOTE | 2019-09-26 02:21 | NUR ---
Dr Younger into eval patient.
[2019-09-26] MEDS ORDERED: ASPIRIN 325 MG TABLET ONE (02:25)
[2019-09-26] MEDS ORDERED: ASPIRIN 325 MG TABLET PO ONE (02:30)
[2019-09-26 02:37] LABS: BASOPHILS % (AUTO) 0.7 % (0.0-2.0); LYMPHOCYTES # (AUTO) 1.9 K/uL (20.0-40.0); LYMPHOCYTES % (AUTO) 41.1 % (20.5-51.5); MEAN CORPUSCULAR HEMOGLOBIN 27.3 uug (23.8-33.4); MEAN CORPUSCULAR HGB CONC 33 g/dL (32.5-36.3); MEAN CORPUSCULAR VOLUME 82.1 fL (73.0-96.2); MONOCYTES # (AUTO) 0.4 K/uL (2.0-10.0); NEUTROPHILS # (AUTO) 2.2 K/uL (1.8-8.9); NEUTROPHILS % (AUTO) 48.2 % (38.5-71.5); PLATELET COUNT (AUTO) 253 K/uL (152-348); RED BLOOD CELL COUNT(AUTO) 4.75 MIL/uL (4.06-5.63); WHITE BLOOD COUNT (AUTO) 4.7 K/uL (3.6-10.2)
[2019-09-26 02:46] LABS: POTASSIUM 3.8 mmol/L (3.5-5.1)
[2019-09-26 02:59] LABS: BILIRUBIN,DIRECT 0.1 mg/dL (0.0-0.2); BILIRUBIN,TOTAL 0.3 mg/dL (0.2-1.0); TOTAL PROTEIN, SERUM 6.7 g/dL (6.4-8.2)
[2019-09-26] MEDS ORDERED: NITROGLYCERIN 0.4 MG/TAB BOTTLE SL ONE ×2 (03:13→03:15)
[2019-09-26] MEDS ORDERED: KETOROLAC TROMETHAMINE 30 MG INJ ONE (06:27)
[2019-09-26] MEDS ORDERED: KETOROLAC TROMETHAMINE 30 MG INJ IVP ONE (06:30)
--- NOTE | 2019-09-26 06:49 | NUR ---
Patient discharged to home in stable conditon. Written and verbal after care instructions given. Patient verbalizes understanding of instructions. Pt ambulated out of ER with steady gait, no acute signs of distress, VSS, all belongings taken, IV site discontinued.
[2019-09-26 06:50] VITALS: BP 154/100
== END 2019-09-26 06:50 | disposition home or self-care (01) ==
LOC: ER 02:06
DX: R07.89 Other chest pain (principal); F10.129 Alcohol abuse with intoxication, unspecified; Z87.891 Personal history of nicotine dependence; Z79.899 Other long term (current) drug therapy
CPT/HCPCS: 36415; 71045; 80048; 80076; 83880; 84484 ×2; 85025; 85379; 93005 ×2; 96374; 99285; G0480; J1885; 70030-TC; A4663

== ENCOUNTER 2020-06-24 14:47 | Emergency (ER) | payer OTHER ==
[~2020-06-24] VITALS: Ht 180.3 cm; Wt 104.3 kg
[~2020-06-24 14:47] MED LIST changes: -BAYER ASPIRIN 81 MG; -HYDROCODONE-ACETAMIN 10-325 MG; -IBUP-1955 PO; +tramadol PO
[2020-06-24] MEDS ORDERED: HYDROCODONE/APAP 5-325MG TABLET PO ONE (16:00)
[2020-06-24] MEDS ORDERED: HYDROCODONE/APAP 5-325MG TABLET ONE (16:19)
[2020-06-24] MEDS ORDERED: IBUPROFEN 800 MG TABLET PO ONE (17:30)
--- NOTE | 2020-06-24 17:31 | NUR ---
Patient discharged to home in stable condition. Written and verbal after care instructions given. Patient verbalizes understanding of instructions. Stressed follow up or return to ER for worsening s/s.
== END 2020-06-24 17:32 | disposition home or self-care (01) ==
LOC: ER 14:47
DX: M25.562 Pain in left knee (principal); F10.21 Alcohol dependence, in remission; Z96.652 Presence of left artificial knee joint; M25.462 Effusion, left knee; Z91.81 History of falling
CPT/HCPCS: 73562; A4663

== ENCOUNTER 2020-11-28 22:53 | Emergency (ER) | payer OTHER ==
[~2020-11-28] VITALS: Ht 180.3 cm; Wt 104.3 kg
--- NOTE | 2020-11-28 23:15 | NUR ---
Dr. Ortiz at bedside for MSE
[2020-11-28] MEDS ORDERED: KETOROLAC TROMETHAMINE 60 MG INJ IM ONE ×2 (23:30)
[2020-11-28 23:52] LABS: BASOPHILS % (AUTO) 0.6 % (0.0-2.0); EOSINOPHILS % (AUTO) 0.5 % (0.0-7.0); HEMATOCRIT 32.4 % (36.7-47.1); HEMOGLOBIN 10.7 g/dL (12.5-16.3); LYMPHOCYTES # (AUTO) 1.5 K/uL (20.0-40.0); LYMPHOCYTES % (AUTO) 27.5 % (20.5-51.5); MEAN CORPUSCULAR HEMOGLOBIN 28.1 uug (23.8-33.4); MEAN CORPUSCULAR HGB CONC 33 g/dL (32.5-36.3); MONOCYTES # (AUTO) 0.6 K/uL (2.0-10.0); NEUTROPHILS # (AUTO) 3.3 K/uL (1.8-8.9); NEUTROPHILS % (AUTO) 60.4 % (38.5-71.5); PLATELET COUNT (AUTO) 250 K/uL (152-348); RED BLOOD CELL COUNT(AUTO) 3.81 MIL/uL (4.06-5.63); WHITE BLOOD COUNT (AUTO) 5.5 K/uL (3.6-10.2)
[2020-11-28 23:57] LABS: MAGNESIUM 2.3 mg/dL (1.8-2.4)
--- NOTE | 2020-11-29 00:20 | NUR ---
Critical lab result called in by Skyler in lab Alcohol Level: 0.2 - Verbal readback done Relayed information to Dr. Ortiz
--- NOTE | 2020-11-29 01:00 | NUR ---
Knee imobilizer applied per MD orders
--- NOTE | 2020-11-29 01:30 | NUR ---
Patient is sleeping on hospital bed, eyes closed. No acute distress noted at this time.
[2020-11-29] MEDS ORDERED: HYDR-3980 PO ×2 (01:32→01:34)
--- NOTE | 2020-11-29 01:57 | NUR ---
nanotechnology technician at bedside to take XR of L knee.
[2020-11-29 03:11] VITALS: BP 130/75
--- NOTE | 2020-11-29 03:13 | NUR ---
Patient discharged to home in stable condition. Written and verbal after care instructions given. Patient verbalizes understanding of instructions. Stressed follow up or return to ER for worsening s/s. Patient called taxi for himself stating "I want to sleep in my own bed". I offerred to let patient sleep here tonight, but patient politely declined. VSS. Steady gait. Patient coherant and A&Ox4. All belongings with patient.
== END 2020-11-29 03:14 | disposition home or self-care (01) ==
LOC: ER 22:53
DX: Z04.1 Encounter for examination and observation following transport accident (principal); M25.462 Effusion, left knee; F10.129 Alcohol abuse with intoxication, unspecified; Y90.6 Blood alcohol level of 120-199 mg/100 ml; R00.0 Tachycardia, unspecified; Z96.653 Presence of artificial knee joint, bilateral; H55.00 Unspecified nystagmus
CPT/HCPCS: 29505; 36415; 70450; 71045; 71120; 72072; 72100; 73502; 73560; 80048; 80320; 83735; 85025; 96372; 99284; J1885; A4663; G0480

== ENCOUNTER 2021-10-15 17:57 | Emergency (ER) | payer OTHER ==
[~2021-10-15] VITALS: Ht 180.3 cm; Wt 99.8 kg
[~2021-10-15 17:57] MED LIST changes: +HYDR-3980 PO
--- NOTE | 2021-10-15 18:40 | NUR ---
PT IS IN ROOM #2B. DR SÁNCHEZ EVALUATED THE PT.
[2021-10-15] MEDS ORDERED: VALACYCLOVIR HCL 500 MG TABLET PO ONE (19:00)
[2021-10-15] MEDS ORDERED: MORPHINE SULFATE 4 MG/1 ML DISP.SYRIN IM ONE (19:00)
[2021-10-15] MEDS ORDERED: KETOROLAC TROMETHAMINE 60 MG INJ IM ONE ×2 (19:00→19:05)
[2021-10-15] MEDS ORDERED: predniSONE 20 MG TABLET PO ONE (19:00)
--- NOTE | 2021-10-15 19:02 | NUR ---
RECEIVED REPORT FROM VEDA GONZALEZ. PT NOTED TO BE IN BED A/O X4, NO SOB OR LABORED BREATHING. SIGNIFICANT OTHER AT BEDSIDE. VSS.
[2021-10-15] MEDS ORDERED: VALACYCLOVIR HCL 500 MG TABLET ONE (19:05)
[2021-10-15] MEDS ORDERED: predniSONE 20 MG TABLET ONE (19:05)
[2021-10-15] MEDS ORDERED: MORPHINE SULFATE 4 MG/1 ML DISP.SYRIN ONE (19:06)
[2021-10-15] MEDS ORDERED: MORPHINE SULFATE 2 MG/1 ML DISP.SYRIN ONE (19:06)
[2021-10-15 19:14] LABS: CREATININE 1.1 mg/dL (0.6-1.3)
[2021-10-15 19:16] LABS: HEMATOCRIT 30.2 % (36.7-47.1); MEAN CORPUSCULAR HEMOGLOBIN 22.5 uug (23.8-33.4); MEAN CORPUSCULAR VOLUME 69.7 fL (73.0-96.2); PLATELET COUNT (AUTO) 368 K/uL (152-348)
[2021-10-15 19:19] LABS: BILIRUBIN,DIRECT 0.2 mg/dL (0.0-0.2); BILIRUBIN,TOTAL 0.4 mg/dL (0.2-1.0); TOTAL PROTEIN, SERUM 8.4 g/dL (6.4-8.2)
[2021-10-15] MEDS ORDERED: HYDR-4209 PO (20:21)
[2021-10-15] MEDS ORDERED: PRED10TA PO (20:21)
[2021-10-15] MEDS ORDERED: VALA100026 PO (20:21)
--- NOTE | 2021-10-15 20:38 | NUR ---
Patient discharged to home in stable condition. Written and verbal after care instructions given. Patient verbalizes understanding of instructions. Stressed follow up or return to ER for worsening s/s. Patient is A/O x4, no CP, no SOB, no distress noted. Patient is accompanied by S.O.
[2021-10-15 20:39] VITALS: BP 128/83
[2021-10-15 23:35] LABS: LYMPHOCYTES % (MANUAL) 25 % (20-40); METAMYELOCYTES % 1 % (0-1); MONOCYTES % (MANUAL) 13 % (2-10); NEUTROPHILS % (MANUAL) 61 % (42-75)
== END 2021-10-15 20:41 | disposition home or self-care (01) ==
LOC: ER 18:08
DX: B02.9 Zoster without complications (principal); F17.210 Nicotine dependence, cigarettes, uncomplicated; D64.9 Anemia, unspecified; D75.839 Thrombocytosis, unspecified; F10.21 Alcohol dependence, in remission
CPT/HCPCS: 36415; 80048; 80076; 85007; 85025; 93005; 96372 ×2; 99284; 99406; J1885; J2270 ×2; J7512; 70030-TC; A4663

== ENCOUNTER 2021-10-27 18:31 | Emergency (ER) | payer OTHER ==
[~2021-10-27] VITALS: Ht 180.3 cm; Wt 102.1 kg
[~2021-10-27 18:31] MED LIST changes: +HYDR-4209 PO; +PRED10TA PO; +VALA100026 PO
--- NOTE | 2021-10-27 18:53 | NUR ---
for about 1 week, pt c/o CP, "like someone pushing down on me," along with associated SOB and dizziness, denies n/v. no distress noted.
--- NOTE | 2021-10-27 18:55 | NUR ---
Dr Younger in room for LATANYA
[2021-10-27 19:13] LABS: HEMATOCRIT 29.7 % (36.7-47.1); MEAN CORPUSCULAR HEMOGLOBIN 22.1 uug (23.8-33.4); MEAN CORPUSCULAR VOLUME 69.1 fL (73.0-96.2); PLATELET COUNT (AUTO) 357 K/uL (152-348)
[2021-10-27] MEDS ORDERED: MORPHINE SULFATE 4 MG/1 ML DISP.SYRIN IM ONE (19:15)
[2021-10-27] MEDS ORDERED: ASPIRIN 325 MG TABLET PO ONE (19:15)
[2021-10-27 19:19] LABS: CARBON DIOXIDE 26 mmol/L (21-32); CHLORIDE 104 mmol/L (98-107); CREATININE 1.2 mg/dL (0.6-1.3); GLUCOSE 98 mg/dL (74-106); POTASSIUM 4.2 mmol/L (3.5-5.1); UREA NITROGEN, BLOOD 21 mg/dL (7-18)
[2021-10-27] MEDS ORDERED: ASPIRIN 325 MG TABLET ONE (19:24)
[2021-10-27] MEDS ORDERED: MORPHINE SULFATE 4 MG/1 ML DISP.SYRIN ONE (19:25)
--- NOTE | 2021-10-27 19:30 | NUR ---
patient's at bedside
[2021-10-27 19:32] LABS: ALANINE AMINOTRANSFERASE 27 U/L (16-63); ALKALINE PHOSPHATASE 62 U/L (50-136); ASPARTATE AMINOTRANSFERASE 15 U/L (15-37); BILIRUBIN,DIRECT 0.2 mg/dL (0.0-0.2); BILIRUBIN,TOTAL 0.5 mg/dL (0.2-1.0); TOTAL PROTEIN, SERUM 7.7 g/dL (6.4-8.2)
[2021-10-27] MEDS ORDERED: IOHEXOL 350 100 ML INFUS..BTL ONE (20:23)
[2021-10-27] MEDS ORDERED: SWABABLE VALVE TRANSFER SET EA MC ONE (20:24)
--- NOTE | 2021-10-27 20:26 | NUR ---
Called [facility], spoke to Sergio who gave ETA of 70mins to take patient to [facility] for CTA. CT is down at this time at [facility].
--- NOTE | 2021-10-27 21:45 | NUR ---
patient went to the restroom. steady gait and able to ambulate without assistance
[2021-10-27 22:22] LABS: NEUTROPHILS % (MANUAL) 0 % (42-75)
--- NOTE | 2021-10-27 22:22 | NUR ---
patient was sent to CT at [place] via [facility] unit 260
--- NOTE | 2021-10-27 23:12 | NUR ---
patient is back from CT
[2021-10-28] MEDS ORDERED: MORPHINE SULFATE 4 MG/1 ML DISP.SYRIN ONE (02:40)
[2021-10-28] MEDS ORDERED: HYDR-4209 PO (02:44)
[2021-10-28] MEDS ORDERED: MORPHINE SULFATE 4 MG/1 ML DISP.SYRIN IM ONE (02:45)
--- NOTE | 2021-10-28 02:53 | NUR ---
Patient discharged to home in stable condition. Written and verbal after care instructions given. Patient verbalizes understanding of instructions. Stressed follow up or return to ER for worsening s/s. Patient is A/O x4, able to walk on steady gait, no CP, no distress, no SOB noted. Patient is accompanied by .
[2021-10-28 02:55] VITALS: BP 128/67
== END 2021-10-28 02:56 | disposition home or self-care (01) ==
LOC: ER 18:33
DX: R07.9 Chest pain, unspecified (principal); B02.29 Other postherpetic nervous system involvement; R59.1 Generalized enlarged lymph nodes; K44.9 Diaphragmatic hernia without obstruction or gangrene; R79.1 Abnormal coagulation profile; Z96.652 Presence of left artificial knee joint; Z87.891 Personal history of nicotine dependence
CPT/HCPCS: 36415; 71045; 71275; 80048; 80076; 83880; 84484 ×2; 85007; 85025; 85379; 93005 ×2; 96374; 96376; 99285; J2270 ×2; Q9967; 70030-TC

== ENCOUNTER 2021-11-21 14:36 | Emergency (ER) | payer OTHER ==
[~2021-11-21] VITALS: Ht 180.3 cm; Wt 91.6 kg
[2021-11-21 15:19] LABS: HEMATOCRIT 30.5 % (36.7-47.1); MEAN CORPUSCULAR HEMOGLOBIN 22.6 uug (23.8-33.4); MEAN CORPUSCULAR VOLUME 70.4 fL (73.0-96.2); PLATELET COUNT (AUTO) 375 K/uL (152-348)
[2021-11-21 15:31] LABS: BILIRUBIN,DIRECT 0.1 mg/dL (0.0-0.2); BILIRUBIN,TOTAL 0.3 mg/dL (0.2-1.0); TOTAL PROTEIN, SERUM 7.8 g/dL (6.4-8.2)
[2021-11-21 15:35] LABS: *BILIRUBIN,URIN NEGATIVE (NEGATIVE); *BLOOD, URINE NEGATIVE (NEGATIVE); *CLARITY,URINE CLEAR (CLEAR); *COLOR,URINE YELLOW (YELLOW); *KETONES,URINE NEGATIVE (NEGATIVE); *UROBILINOGEN,URINE 0.2 E.U./dl (NORMAL); LEUKOCYTE ESTERASE ,URINE NEGATIVE (NEGATIVE); NITRITE, URINE NEGATIVE (NEGATIVE); UGLUCOSE NEGATIVE (NEGATIVE)
--- NOTE | 2021-11-21 16:30 | NUR ---
Pt resting in bed, no complaints, no distress noted.
[2021-11-21] MEDS ORDERED: NAPR-1164 PO (16:52)
[2021-11-21 16:59] LABS: *OCCULT BLOOD STOOL NEGATIVE (NEGATIVE)
[2021-11-21] MEDS ORDERED: KETOROLAC TROMETHAMINE 30 MG INJ ONE (17:15)
[2021-11-21] MEDS ORDERED: KETOROLAC TROMETHAMINE 30 MG INJ IM ONE (17:15)
--- NOTE | 2021-11-21 17:26 | NUR ---
Gave pt RX and d/c instructions, pt verbalized understanding.
== END 2021-11-21 17:29 | disposition home or self-care (01) ==
LOC: ER 14:36
DX: R10.9 Unspecified abdominal pain (principal); D64.9 Anemia, unspecified; Z96.652 Presence of left artificial knee joint; F17.210 Nicotine dependence, cigarettes, uncomplicated
CPT/HCPCS: 36415; 74176; 80048; 80076; 81003; 82270; 83690; 85025; 93005; 96372; 99285; J1885; A4663